=== PATIENT | male | born 1980 | race Caucasian/White ===

== ENCOUNTER 2017-03-31 12:29 | Emergency (ER) | payer SELFPAY ==
[~2017-03-31] VITALS: Ht 175.3 cm; Wt 67.3 kg
[2017-03-31 12:37] VITALS: BP 144/92
== END 2017-03-31 13:19 | disposition home or self-care (01) ==
LOC: ED 13:15
DX: K01.1 Impacted teeth (principal); F17.210 Nicotine dependence, cigarettes, uncomplicated
CPT/HCPCS: 99283